=== PATIENT | female | born 1990 | race Caucasian/White ===

== ENCOUNTER 2018-12-27 14:00 | Emergency (ER) | payer OTHER ==
--- NOTE | 2018-12-27 14:38 | EDPHY ---
H & P Stated Complaint: steam burn from oven on right side (eye) of face 1230 Time Seen by Provider: 12/27/18 14:38 - Personal History LMP (Females 10-55): Now Current Tetanus Diphtheria and Acellular Pertussis (TDAP): Yes - Medical/Surgical History Hx Asthma: No Hx Chronic Respiratory Disease: No Hx Diabetes: No Hx Cardiac Disease: No Hx Renal Disease: No Hx Cirrhosis: No Hx Alcoholism: No Hx HIV/AIDS: No Hx Splenectomy or Spleen Trauma: No Other PMH: none - Social History Smoking Status: Never smoked Constitutional: Initial Vital Signs Temperature (C) 36.8 C 12/27/18 14:10 Heart Rate 86 12/27/18 14:10 Respiratory Rate 16 12/27/18 14:10 Blood Pressure 157/100 H 12/27/18 14:10 O2 Sat (%) 99 12/27/18 14:10 O2 Delivery Mode Room Air Allergies/Adverse Reactions: No Known Allergies Allergy (Verified 12/27/18 14:10) Home Medications: Medication Instructions Recorded NK [No Known Home Meds] 12/27/18 Medical Decision Making ED Course/Re-evaluation: CHIEF COMPLAINT: HISTORY OF PRESENT ILLNESS: must have 4 elements: Location, Quality, Severity , Duration, Timing, Context, Modifying Factors, Associated Signs and Symptoms REVIEW OF SYSTEMS: A comprehensive 10 system review of systems is otherwise negative aside from elements mentioned in the history of present illness and medical decision making. PHYSICAL EXAM: HR, BP, O2 Sat, RR. Temp noted General Appearance: Alert, well hydrated, appropriate, and non-toxic appearing. Head: Atraumatic without scalp tenderness or obvious injury Eyes: Pupils equal, round, reactive to light and accommodation, EOMI, no trauma , no injection. Ears: Clear bilaterally, no perforation, normal landmarks Nose: Atraumatic, no rhinorrhea, clear. Throat: There is no erythema or exudates, no lesions, normal tonsils, mucus membranes moist. Neck: Supple, 2+ carotid upstroke, nontender, no lymphadenopathy. Respiratory: No retractions, no distress, no wheezes, and no accessory muscle use. Lungs are clear to auscultation bilaterally. Cardiovascular: Regular rate and rhythm, no murmurs, rubs, or gallops. Bilateral carotid, radial, dorsalis pedis, and posterior tibial pulses intact. Good capillary refill all extremities. Gastrointestinal: Abdomen is soft, nontender, non-distended, no masses, no rebound, no guarding, no peritoneal signs. Musculoskeletal: Normal active ROM of all extremities, atraumatic. Neurological: Alert, appropriate, and interactive. The patient has normal DTRs and non-focal cranial nerves, motor, sensory, and cerebellar exam. Skin: No rashes, good turgor, no nodules on palpation. Past medical history: Past surgical history: Family history: Social history: DIAGNOSTICS/PROCEDURES/CRITICAL CARE TIME: DIFFERENTIAL DIAGNOSIS: MEDICAL DECISION MAKING: Departure - Departure Condition: Fair Referrals: NONE *PRIMARY CARE P,. [Primary Care Provider] - As per Instructions
[2018-12-27] MEDS ORDERED: OXYCODONE/APAP 5/325 TAB PO ONE (14:42)
--- NOTE | 2018-12-27 14:42 | EDPHY ---
H & P Stated Complaint: steam burn from oven on right side (eye) of face 1230 Time Seen by Provider: 12/27/18 14:38 HPI/ROS: CHIEF COMPLAINT: Burn to face HISTORY OF PRESENT ILLNESS: The patient is a 28 y/o female complaining of a steam burn to the right side of her face secondary to opening and steam oven at work 2 hours ago at 12:30. She has been applying a makeshift ice pack to the side of her face since the injury for pain. She denies vision changes, internal mouth or nose pain or swelling, or difficulty breathing. She does complain of pain with range of motion of her right eye that feels "like there's pressure on it." She denies sensation of a foreign body in her eye. No other trauma. She is typically healthy. REVIEW OF SYSTEMS: A ten system review of systems was performed and is negative with the exception of the items mentioned in the HPI. 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 Nonsmoker. General Appearance: Alert. Vital signs reviewed. Face: Superficial 1st degree burn extending across right face to midline involving lids, 1/3 of forehead, cheek, maxilla. No blistering. Does not extend to neck. Eyes: Pupils equal and round, no conjunctival injection, no discharge. Anicteric. Visual Acuity: noted from Nurse's notes. Pupils: equal round and reactive to light, EOMI Lids: no edema or swelling Skin: no proptosis, no periorbital erythema or swelling, no vesicles Conjunctivae: not injected, no discharge Cornea: exam with fluorescein shows scattered areas of punctate keratitis on right eye. Anterior chamber: normal, no hyphema or hypopyon ENT, Mouth: Mucous membranes are moist, no oropharyngeal erythema or edema. No oral pharyngeal edema, managing secretions easily. No trismus. Neck: No lymphadenopathy, supple. Trachea midline. Respiratory: Lungs are clear to auscultation; no wheezes, rales, or rhonchi. Cardiovascular: Regular rate and rhythm; no murmur, rub, or gallop. Gastrointestinal: Abdomen is soft and nontender, no masses or organomegaly. Skin: Warm and dry, no rashes on exposed skin, normal color. Neurological: Alert and oriented. Moving all four extremities easily and equally. Facial sensation intact to light touch. Facial expressions symmetric. Tongue midline. Psychiatric: Normal affect. - Personal History LMP (Females 10-55): Now Current Tetanus Diphtheria and Acellular Pertussis (TDAP): Yes - Medical/Surgical History Hx Asthma: No Hx Chronic Respiratory Disease: No Hx Diabetes: No Hx Cardiac Disease: No Hx Renal Disease: No Hx Cirrhosis: No Hx Alcoholism: No Hx HIV/AIDS: No Hx Splenectomy or Spleen Trauma: No Other PMH: none - Social History Smoking Status: Never smoked Constitutional: Initial Vital Signs Temperature (C) 36.8 C 12/27/18 14:10 Heart Rate 86 12/27/18 14:10 Respiratory Rate 16 12/27/18 14:10 Blood Pressure 157/100 H 12/27/18 14:10 O2 Sat (%) 99 12/27/18 14:10 O2 Delivery Mode Room Air Allergies/Adverse Reactions: No Known Allergies Allergy (Verified 12/27/18 14:10) Home Medications: Medication Instructions Recorded Hydrocodone/APAP 5/325 [[address] 1 - 2 tab PO Q4 PRN #14 tab 12/27/18 5/325 (RX)] Ofloxacin 0.3% [Ocuflox 0.3% (RX)] 1 drops RTEYE QID #1 opht.btl 12/27/18 Medical Decision Making ED Course/Re-evaluation: This is a healthy 28 y/o female who presents with a flash steam burn to the right side of her face that occurred at work in the kitchen. Burn extends across the majority of her right face to midline and appears superficial. No blistering. She describes right eye "pressure" with range of movement. Plan for pain control with oxycodone and ice pack and further exam with slit lamp. This burn is a 1st degree burn. Slight lamp exam shows mild punctate keratitis. 1535: Consulted with Dr. Herr, ophthalmology. He recommends Ocuflox drops x3 days and follow up if needed for unimproved symptoms. Reassessed patient. She will be discharged with standard burn care and follow up instructions. Script for [address] and Ocuflox provided. She is comfortable with this plan. Differential Diagnosis: I considered first-degree burn, second-degree burn, 3rd degree burn, airway compromise, and injury to eye. - Data Points Medications Given: Discontinued Medications Hydrocodone Bitart/Acetaminophen ([address] 5/325mg Prepack#6) 1 btl TAKEHOME EDNOW ONE Stop: 12/27/18 16:02 Last Admin: 12/27/18 16:06 Dose: 1 btl Ofloxacin (Ocuflox 0.3% Opht Drops Prepack) 1 btl TAKEHOME EDNOW ONE Stop: 12/27/18 16:02 Last Admin: 12/27/18 16:08 Dose: 1 btl Ofloxacin (Ocuflox 0.3% Opht Drops Prepack) 1 btl TAKEHOME EDNOW ONE Stop: 12/27/18 16:03 Last Admin: 12/27/18 16:10 Dose: Not Given Oxycodone/Acetaminophen (Percocet 5/325) 1 tab PO EDNOW ONE Stop: 12/27/18 14:43 Last Admin: 12/27/18 14:59 Dose: 1 tab Departure - Departure Disposition: Home, Routine, Self-Care Clinical Impression: Superficial burn of face Qualifiers: Encounter type: initial encounter Qualified Code(s): T20.10XA - Burn of first degree of head, face, and neck, unspecified site, initial encounter Punctate keratitis Qualifiers: Laterality: right Qualified Code(s): H16.141 - Punctate keratitis, right eye Condition: Good Instructions: Hydrocodone/Acetaminophen (By mouth), Ofloxacin (Into the eye), Corneal Flash Sauceda (ED), Superficial Burn (ED) Additional Instructions: 1. Apply Ocuflox drops as directed into the affected eye for the next 3 days. 2. If eye symptoms do not completely resolve, follow up with Dr. Herr, ophthalmology. 3. Take 600mg ibuprofen every 8 hours as needed for pain over the next few days. Apply ice pack intermittently to sore areas over the next 24-48 hours. 4. Use [address] as prescribed when needed for severe pain. This medication contains a narcotic and can cause drowsiness and constipation. Do not use prior to driving. This medication also contains Tylenol (acetaminophen), do not exceed maximum Tylenol dosing while using [address]. 5. Follow up with your company's HR department as directed for workman's comp. 6. Return to the ED for severe pain, vision changes, difficulty breathing, or other worsening of condition. Referrals: Raul Herr MD [Medical Doctor] - As per Instructions Stand Alone Forms: Work Comp Follow Up, Work Excuse Prescriptions: Hydrocodone/APAP 5/325 [[address] 5/325 (RX)] 1 - 2 tab PO Q4 PRN #14 tab PRN Reason: pain Ofloxacin 0.3% [Ocuflox 0.3% (RX)] 1 drops RTEYE QID #1 opht.btl Report Scribed for: Gaby Aragon Report Scribed by: Lisandra Lovell Date of Report: 12/27/18 Time of Report: 14:42 Physician Review and Approval Statement: 01/01/19 07:35 Portions of this note were transcribed by the medical equipment sales. I, Dr. Gaby Aragon, personally performed the history, physical exam, and medical decision- making; and confirmed the accuracy of the information in the transcribed note.
[2018-12-27] MEDS ORDERED: PROPARACAINE 0.5% 15 ML OPHT DROP ONE (14:48)
[2018-12-27] MEDS ORDERED: FLUORESCEIN SODIUM 1 MG STRIP OP ONE (15:01)
[2018-12-27] MEDS ORDERED: OFLOXACIN 0.3% SOLN PREPACK OPHT.BTL TAKEHOME ONE ×2 (16:01→16:02)
[2018-12-27] MEDS ORDERED: HYDROCOD/APAP 5/325 PREPACK#6 BTL TAKEHOME ONE ×2 (16:01→16:02)
[2018-12-27 16:14] VITALS: BP 125/80
== END 2018-12-27 16:14 | disposition home or self-care (01) ==
DX: T20.10XA Burn of first degree of head, face, and neck, unspecified site, initial encounter (principal); H16.141 Punctate keratitis, right eye; X15.0XXA Contact with hot stove (kitchen), initial encounter; Y93.G1 Activity, food preparation and clean up; Y99.0 Civilian activity done for income or pay; T31.0 Burns involving less than 10% of body surface